=== PATIENT | female | born 1955 | race Caucasian/White ===

== ENCOUNTER → 2017-10-08 | Outpatient (CLI) | payer BC, OTHER ==
[2015-04-06 16:29] VITALS: BMI 22.2
[~2017-10-08] MED LIST: CALC-1173 PO; IBUP800T37 PO; KET10 PO; LEVO-3 PO; LEVO100T95 PO; NITR-105 PO; OXYC-373 PO; PER PO; PHEN200T32 PO
--- NOTE | 2017-10-08 09:25 | RADIOLOGY IMAGING REPORT ---
[place] [facility] [place] NAME: Liz Berrios : 1955 MR: [id number] V: [id number] EXAM DATE: ORDERING PHYSICIAN: ABY JHA TECHNOLOGIST: Location: [facility] Patient: Liz Berrios : 1955 Visit/Account:[id number] Date of Sevice: 10/08/2017 BONE MINERAL DENSITY HISTORY: Osteopenia COMPARISON: Most recent DEXA examination from 07/07/2014 FINDINGS: LUMBAR SPINE: Bone mineral density (BMD) measured from one Profore correlates with a Z-score of -1.9 and a T-score of -2.8 which is osteoporosis as defined by the World Health Organization. The corresponding risk of fracture in the lumbar spine is 6-8 times compared with a young adult reference population. This va lue has decreased by 8.8% since the prior study. More than 5% change is considered significant. HIP: Bone mineral density (BMD) measured in the left total hip region correlates with a Z-score of -0.3 an d a T-score of -1.0 which is osteopenia as defined by the World Health Organization. The correspondi ng risk of fracture in the hip is 2 times compared with a young adult reference population. This ignacio ue has decreased by 6.6% since the prior study. More than 5% change is considered significant. Bone mineral density (BMD) measured in the left Femoral Neck region measures 0.903 g/cm2. T score is -1.0, osteopenia IMPRESSION: 1. Lumbar spine: Osteoporosis. There has been significant interval decrease in the bone mineral de nsity since the previous exam. 2. Left Total Hip: Osteopenia. There has been significant interval decrease in the bone mineral de nsity since the previous exam. 3. Left Femoral Neck: Bone Mineral Density is 0.903 g/cm2. Osteopenia The next DEXA scan of this patient should include the following sites: L1-L4 and left hip. FRAX? WHO Fracture Risk Assessment Tool link: <http://www.shef.ac.uk/FRAX/tool.jsp?locationValue=9> PLEASE NOTE: 1) The World Health Organization defines low BMD as follows: T-score Normal > -1 Osteopenia < -1 and > -2.5 Osteoporosis < -2.5 without fractures Established osteoporosis < -2.5 with fractures 2) In general, you may wish to consider: Diagnosis Treatment Follow-up DEXA Normal BMD Prevention 2-3 years Osteopenia Prevention/therapy 1-2 years Osteoporosis Therapy Yearly 3) Fracture risk estimated from the T-score is more accurate for vertebral fractures (often spontane ous) than for hip fractures. Report Dictated By: Moisés Us MD at 10/08/2017 9:19 AM Report E-Signed By: Moisés Us MD at 10/08/2017 9:22 AM WSN:[id number]
--- NOTE | 2017-10-09 08:24 | RADIOLOGY IMAGING REPORT ---
FACILITY: [facility] PATIENT NAME: DACIA FRANCO : [id number] MR: [id number] V: [id number] EXAM DATE: [id number] ORDERING PHYSICIAN: ABY JHA TECHNOLOGIST: Esther Liu PROCEDURE:BILATERAL DIGITAL SCREENING MAMMOGRAM WITH CAD ASSISTED INTERPRETATION AND 3D BREAST TOMOSYNTHESIS. COMPARISON:Prior mammograms dated 07/07/14. INDICATIONS:SCREENING FINDINGS: Moderately dense fibroglandular tissue is seen throughout the breasts. The parenchymal pattern has remained stable when allowing for difference in mammographic technique and patient positioning. There is no evidence of malignant appearing mass, malignant appearing calcification or secondary sign of malignancy in either breast. DIAGNOSTIC CATEGORY 1--NEGATIVE. RECOMMENDATIONS: ROUTINE MAMMOGRAM AND CLINICAL EVALUATION. IMPRESSION: Bi-RADS 1: No significant abnormality is seen. Images were reviewed with R2CAD and 3D breast tomosynthesis. Dictated by: Karrie Rolon M.D. on 10/08/2017 at 9:57 Transcribed by: KIEL on 10/08/2017 at 17:48 Approved by: Karrie Rolon M.D. on 10/09/2017 at 8:23 [facility]
== END ==
LOC: RAD 07:07
PROVIDERS: ATTEND Nurse Practitioner Family
DX: Z13.820 Encounter for screening for osteoporosis (principal); Z12.31 Encounter for screening mammogram for malignant neoplasm of breast; M81.6 Localized osteoporosis [Lequesne]; M85.88 Other specified disorders of bone density and structure, other site
CPT/HCPCS: 77063; 77067; 77080